=== PATIENT | female | born 2000 | race Caucasian/White ===

== ENCOUNTER 2022-07-28 13:35 | Emergency (ER) | payer SELFPAY ==
[~2022-07-28] VITALS: Ht 165.1 cm; Wt 56.7 kg
[2022-07-28 13:45] VITALS: BP 116/60
--- NOTE | 2022-07-28 13:55 | NUR ---
PT LEFT WITHOUT BEING SEEN. PER [employer], PT LEFT STATING SHE DOES NOT WANT TO BE SEEN AT THIS TIME.
== END 2022-07-28 13:55 | disposition left against medical advice (07) ==
LOC: MED 13:35
DX: O26.891 Other specified pregnancy related conditions, first trimester (principal); Z3A.01 Less than 8 weeks gestation of pregnancy; Z53.21 Procedure and treatment not carried out due to patient leaving prior to being seen by health care provider
CPT/HCPCS: 99281